=== PATIENT | female | born 1990 | race Caucasian/White ===

== ENCOUNTER 2016-08-21 11:20 | Emergency (ER) | payer BC ==
[~2016-08-21] VITALS: Ht 154.9 cm; Wt 55.7 kg
[2016-08-21 11:39] VITALS: BP 109/75; PULSE 82; RESP 16; TEMP 97.8; O2SAT 99
--- NOTE | 2016-08-21 11:56 | PD ---
HPI Chief Complaint: Injury Time Seen by Provider: 11:48 Travel History International Travel<30 days: No Contact w/Intl Traveler<30days: No Traveled to known affect area: No History of Present Illness HPI 26-year-old female presents to the emergency room for evaluation of ankle pain and swelling for the past 2 days. Patient states she was chasing her friend when she accidentally inverted her ankle. Pain is localized to the lateral malleolus. She has had continued pain since then but been able to bear weight. Pain is not severe. She has iced, elevated, and applied kinesiology tape without relief in symptoms. She has not taken anything by mouth for pain. Denies paresthesias. Denies chronic medical conditions or daily medications. PFSH Past Medical History Medical History: Denies Significant Hx Influenza Vaccination: No ?: Not LMP: 08/13/16 Past Surgical History Surgical History: No Previous Surgery Social History Alcohol Use: Yes (OCCAS) Tobacco Use: No Substance Use: No Allergies-Medications (Allergen,Severity, Reaction): Coded Allergies: No Known Allergies (Unverified , 08/21/16) Review of Systems Except as stated in HPI: all other systems reviewed are Neg Physical Exam Narrative GENERAL: Well-nourished, well-developed female in no acute distress. Afebrile. Ambulatory. SKIN: Warm and dry. There is mild to moderate ecchymosis over the right lateral malleolus. HEAD: Normocephalic. EYES: No scleral icterus. No injection or drainage. NECK: Supple, trachea midline. No JVD or lymphadenopathy. EXTREMITY: Mild to moderate tenderness to palpation of the right lateral malleolus. Full range of motion in all joints. Moderate edema of the right lower ankle. 2+ dorsalis pedis pulse and less than 2 second capillary refill distally. Data Data Last Documented VS Vital Signs Date Time Temp Pulse Resp B/P Pulse Ox O2 Delivery O2 Flow Rate FiO2 08/21/16 11:39 97.8 82 16 109/75 99 Orders Ankle, Complete ([id number]) (08/21/16 ) [facility] Medical Decision Making Medical Screen Exam Complete: Yes Emergency Medical Condition: Yes Medical Record Reviewed: Yes Differential Diagnosis Sprain versus fracture versus abrasion versus contusion Narrative Course 26-year-old female presents to the emergency room for evaluation of right ankle pain and swelling for the past 2 days. Patient had inversion injury at onset but has been ambulatory. Right lower extremity is neurovascularly intact with 2 + dorsalis pedis pulse. There is moderate edema and ecchymosis especially over the right lateral malleolus. X-ray reveals no acute bony abnormality. This is ankle sprain. Patient placed in ankle stirrup and discharged with crutches and orthopedic instructions. Told to follow up with her primary care physician or return to the emergency room for worsening symptoms. She understands and agrees to plan. Diagnosis Primary Impression: Ankle sprain Qualified Code: S93.401A - Sprain of right ankle, unspecified ligament, initial encounter Referrals: Primary Care Physician Patient Instructions: Ankle Sprain (ED), General Instructions Additional Instructions: Rest and drink plenty of fluids. Use splint and crutches continuously for 1 week, then as needed for pain. Take ibuprofen with food as directed, as needed for pain. Elevate and apply ice to the affected area for 20 minutes at a time, as needed for pain and swelling. Follow-up with a primary care physician. Return to the emergency room for worsening symptoms. Disposition: 01 DISCHARGE HOME Condition: Stable Cely Hay Aug 21, 2016 11:56
--- NOTE | 2016-08-21 12:59 | RADHPO ---
EXAM DATE/TIME: 08/21/2016 12:06 [facility] COMPARISON: No previous studies available for comparison. INDICATIONS : Right ankle pain, twist injury MEDICAL HISTORY : None. SURGICAL HISTORY : None. ENCOUNTER: Initial ACUITY: 3 days PAIN SCORE: 6/10 LOCATION: Right ankle FINDINGS: Three view exam was performed of the right ankle. The bony structures are in normal alignment. No e vidence of fracture, dislocation. There is soft tissue swelling over the lateral malleolus. The ankl e mortise is intact. No radiopaque foreign bodies are seen. Bony mineralization is normal. CONCLUSION: Soft tissue swelling over the lateral malleolus. No acute fracture or joint dislocation. Nathan Franks MD on August 21, 2016 at 12:57 Board Certified Radiologist. This report was verified electronically.
== END 2016-08-21 13:18 | disposition home or self-care (01) ==
LOC: PHEFT 11:20
DX: S93.401A Sprain of unspecified ligament of right ankle, initial encounter (principal); X50.0XXA Overexertion from strenuous movement or load, initial encounter
CPT/HCPCS: 73610; 99283; E0113; L1906

== ENCOUNTER 2017-06-08 07:59 | Emergency (ER) | payer BC ==
[~2017-06-08] VITALS: Ht 154.9 cm; Wt 54.0 kg
[2017-06-08 08:04] VITALS: BP 116/65; PULSE 90; RESP 16; TEMP 98.4; O2SAT 100
[2017-06-08] MEDS ORDERED: KETOROLAC TROMETHAMINE 30 MG/ML (IVP) VIAL IV PUSH ONE (08:15)
[2017-06-08 08:16] VITALS: BP 116/65
--- NOTE | 2017-06-08 08:17 | PD ---
HPI Chief Complaint: Flank/Kidney Pain Time Seen by Provider: 08:11 Travel History International Travel<30 days: No Contact w/Intl Traveler<30days: No History of Present Illness HPI 27yo F with no PMH presents to the ED with c/o left sided back pain for 3 days. States pain is sharp, intermittent and at times radiates to left abdomen. Currently no abdominal pain. Said last had fever 3 days ago. +Mild dysuria. Denies any chest pain, sob, n/v, hematuria, diarrhea, vaginal bleeding or discharge. Denies any IVDA, trauma, heavy exercise or lifting. PFSH Social History Alcohol Use: Yes (OCCAS) Tobacco Use: No Substance Use: No Allergies-Medications (Allergen,Severity, Reaction): Coded Allergies: No Known Allergies (Unverified Adverse Reaction, Unknown, 06/08/17) Reported Meds & Prescriptions Reported Meds & Active Scripts Active No Active Prescriptions or Reported Medications Review of Systems Except as stated in HPI: all other systems reviewed are Neg Physical Exam Narrative GENERAL: 27yo F not in distress. SKIN: Focused skin assessment warm/dry. HEAD: Atraumatic. Normocephalic. EYES: Pupils equal and round. No scleral icterus. No injection or drainage. CARDIOVASCULAR: Regular rate and rhythm. No murmur appreciated. RESPIRATORY: No accessory muscle use. Clear to auscultation. Breath sounds equal bilaterally. GASTROINTESTINAL: Abdomen soft, non-tender, nondistended. No rebound tenderness or guarding. BACK: No midline thoracic or lumbar ttp. +CVA tenderness on left. MUSCULOSKELETAL: No obvious deformities. No clubbing. No cyanosis. No edema. NEUROLOGICAL: Awake and alert. No obvious cranial nerve deficits. Motor grossly within normal limits. Normal speech. PSYCHIATRIC: Appropriate mood and affect; insight and judgment normal. Data Data Last Documented VS Vital Signs Date Time Temp Pulse Resp B/P (MAP) Pulse Ox O2 Delivery O2 Flow Rate FiO2 06/08/17 10:20 70 16 109/66 (80) 98 Room Air 06/08/17 08:04 98.4 Orders Orders Urinalysis - C+S If Indicated (06/08/17 08:01) Ed Urine Pregnancytest Poc (06/08/17 08:01) Complete Blood Count With Diff (06/08/17 08:11) Basic Metabolic Panel (Bmp) (06/08/17 08:11) Ketorolac Inj (Toradol Inj) (06/08/17 08:15) Ed Poc Ultrasound (06/08/17 ) Labs Laboratory Tests Test 06/08/17 08:15 06/08/17 08:28 Urine Collection Type CLEAN CATCH Urine Color YELLOW Urine Turbidity CLEAR Urine pH 7.0 Urine Specific [place] 1.015 Urine Protein NEG mg/dL Urine Glucose (UA) NEG mg/dL Urine Ketones NEG mg/dL Urine Occult Blood SMALL Urine Nitrite NEG Urine Bilirubin NEG Urine Leukocyte Esterase NEG Urine RBC 4-9 /hpf Urine WBC 0-2 /hpf Urine Squamous Epithelial Cells 6-8 /hpf Microscopic Urinalysis Comment CULT NOT INDICATED Urine Collection Time 08:15 White Blood Count 11.4 TH/MM3 Red Blood Count 3.95 MIL/MM3 Hemoglobin 10.4 GM/DL Hematocrit 31.3 % Mean Corpuscular Volume 79.3 FL Mean Corpuscular Hemoglobin 26.4 PG Mean Corpuscular Hemoglobin Concent 33.3 % Red Cell Distribution Width 15.9 % Platelet Count 232 TH/MM3 Mean Platelet Volume 8.3 FL Neutrophils (%) (Auto) 77.5 % Lymphocytes (%) (Auto) 12.0 % Monocytes (%) (Auto) 9.9 % Eosinophils (%) (Auto) 0.2 % Basophils (%) (Auto) 0.4 % Neutrophils # (Auto) 8.9 TH/MM3 Lymphocytes # (Auto) 1.4 TH/MM3 Monocytes # (Auto) 1.1 TH/MM3 Eosinophils # (Auto) 0.0 TH/MM3 Basophils # (Auto) 0.0 TH/MM3 CBC Comment DIFF FINAL Differential Comment Blood Urea Nitrogen 5 MG/DL Creatinine 0.81 MG/DL Random Glucose 103 MG/DL Calcium Level 8.4 MG/DL Sodium Level 134 MEQ/L Potassium Level 3.6 MEQ/L Chloride Level 102 MEQ/L Carbon Dioxide Level 22.9 MEQ/L Anion Gap 9 MEQ/L Estimat Glomerular Filtration Rate 85 ML/MIN [facility] Medical Decision Making Medical Screen Exam Complete: Yes Emergency Medical Condition: Yes Differential Diagnosis Pyelonephritis vs. nephrolithiasis vs. musculoskeletal pain Narrative Course 27yo well appearing female here with left sided back/flank pain for 3 days. Pt has not abdominal pain, nausea or vomiting currently. Labs reviewed, WBC 11.4. H/H low at 10.4/31.3. BNP unremarkable. Creatinine normal. UA showed small blood. Urine RBC 4-9. +Squamous. culture not indicated. Urine negative. Pt reevaluated after toradol and pain has resolved. Pt is nontoxic appearing and may have had nephrolithiasis with blood in urine but do not feel that CT is warranted at this time. Bedside US showed no hydronephrosis. Return precautions given. Procedures Procedure Narrative Emergency department urinary tract ultrasound was performed with patient consent. Curvilinear probe was used in the transverse and sagittal views in the bilateral flank and suprapubic region without evidence of hydronephrosis. Diagnosis Primary Impression: Left flank pain Patient Instructions: General Instructions Departure Forms: Tests/Procedures Additional Instructions: Please follow up with your primary care physician in 2-3 days for left flank pain and blood in urine. Return to the ED if you have fever, vomiting, abdominal pain or any concerning symptoms. Med/Other Pt SpecificInfo: Prescription(s) given Scripts Ibuprofen (Ibuprofen) 600 Mg Tab 600 MG PO Q8H Y for PAIN, #20 TAB 0 Refills Prov: Antonette Saul DO 06/08/17 Disposition: 01 DISCHARGE HOME Condition: Stable Antonette Saul DO Jun 08, 2017 08:17
[2017-06-08 08:58] LABS: BLOOD, URINE SMALL (NEG); GLUCOSE,URINE NEG (NEG); KETONE, URINE NEG (NEG); NITRITE,URINE NEG (NEG)
[2017-06-08 08:59] LABS: AUTOMATED NEUTROPHIL # 8.9 TH/MM3 (1.8-7.7); BASOPHIL % 0.4 % (0.0-2.0); EOSINOPHIL % 0.2 % (0.0-4.0); HEMATOCRIT 31.3 % (35.0-46.0); LYMPHOCYTE # 1.4 TH/MM3 (1.0-4.8); MEAN CELL VOLUME 79.3 FL (80.0-100.0); MEAN CORPUSCULAR HEMOGLOBIN 26.4 PG (27.0-34.0); MEAN CORPUSCULAR HGB CONC 33.3 % (32.0-36.0); MONO % 9.9 % (0.0-8.0); NEUT % 77.5 % (16.0-70.0); PLATELET COUNT 232 TH/MM3 (150-450); RED BLOOD COUNT 3.95 MIL/MM3 (4.00-5.30); RED CELL DISTRIBUTION WIDTH 15.9 % (11.6-17.2); WHITE BLOOD COUNT 11.4 TH/MM3 (4.0-11.0)
[2017-06-08 09:00] LABS: HEMO FLAGS DIFF FINAL
[2017-06-08 09:01] LABS: POTASSIUM 3.6 MEQ/L (3.5-5.1)
[2017-06-08 09:04] LABS: BICARBONATE 22.9 MEQ/L (21.0-32.0)
[2017-06-08 09:10] LABS: METHOD OF COLLECTION CLEAN CATCH; URINE COLOR YELLOW (YELLW/STRAW)
[2017-06-08 09:11] LABS: COMMENT (UR) CULT NOT INDICATED; CULTURE IF INDICATED CULT NOT INDICATED; WBC, URINE 0-2 /hpf (0-5)
[2017-06-08 09:15] VITALS: BP 106/73; PULSE 86; RESP 16; O2SAT 99
[2017-06-08 10:20] VITALS: BP 109/66; PULSE 70; RESP 16; O2SAT 98
[2017-06-08] MEDS ORDERED: IBUP-232 PO (10:54)
== END 2017-06-08 11:14 | disposition home or self-care (01) ==
LOC: PHED 07:59
DX: R10.9 Unspecified abdominal pain (principal); R30.0 Dysuria; R50.9 Fever, unspecified
CPT/HCPCS: 80048; 81001; 84703; 85025; 96374; 99284; J1885